=== PATIENT | female | born 1955 | race Caucasian/White ===

== ENCOUNTER 2018-03-02 00:09 | Day surgery (SDC) | payer BC, OTHER ==
[2018-03-02] VITALS (7 sets, daily range): BP systolic 87–115; BP diastolic 55–79
[~2018-03-02] VITALS: Ht 157.5 cm; Wt 74.4 kg
[~2018-03-02 00:09] MED LIST: PER PO
[2018-03-02] MEDS ORDERED: LIDOCAINE MPF 1% 5 ML VIAL ONE (06:51)
[2018-03-02] MEDS ORDERED: PROPOFOL EMUL(*) 10MG/ML 20 ML 40 ML ONE (06:51)
[2018-03-02] MEDS ORDERED: LIDOCAINE/SOD BICARB 8.4% SYR ID ONE (09:05)
[2018-03-02] MEDS ORDERED: NORMOSOL R SOLN(*) 1000 ML BAG 1,000 ML IV PRN (09:05)
== END 2018-03-02 11:37 | disposition home or self-care (01) ==
LOC: OR 00:09
PROVIDERS: ATTEND Family Medicine
DX: Z12.11 Encounter for screening for malignant neoplasm of colon (principal)
CPT/HCPCS: 00812; 45378; J2001; J2704

== ENCOUNTER → 2018-03-07 | Outpatient (CLI) | payer BC ==
--- NOTE | 2018-03-08 16:06 | RADIOLOGY IMAGING REPORT ---
FAC[place] [facility] [place] NAME: IMELDA SINCLAIR : [id number] MR: [id number] V: [id number] EXAM DATE: ORDERING PHYSICIAN: AUGUSTUS MEADOWS TECHNOLOGIST: Conchis Faulkner PROCEDURE:BILATERAL DIGITAL SCREENING MAMMOGRAM WITH CAD ASSISTED INTERPRETATION & 3D TOMOSYNTHESIS COMPARISON:None. INDICATIONS:SCREENING FINDINGS: The breasts are heterogeneously dense. Several benign appearing calcifications are scattered bilaterally. A focal asymmetry is present in the inferior aspect of the Right breast. DIAGNOSTIC CATEGORY 0--INCOMPLETE: NEED ADDITIONAL IMAGING EVALUATION. RECOMMENDATIONS: ADDITIONAL MAMMOGRAPHIC VIEWS REQUIRED: RIGHT BREAST. IMPRESSION: BIRADS 0: Incomplete. Right MLO and CC Spot compression views, standard Right ML view, and Right breast Ultrasound if indicated based on additional views. Dictated by: Collin Waddell M.D. on 03/08/2018 at 13:04 Transcribed by: [email or web address] on 03/08/2018 at 13:16 Approved by: Collin Waddell M.D. on 03/08/2018 at 16:05 [facility]
== END ==
LOC: MAMO 00:22
PROVIDERS: ATTEND Family Medicine
DX: R92.2 Inconclusive mammogram (principal)
CPT/HCPCS: 77063; 77067